=== PATIENT | male | born 1950 | race Caucasian/White ===

== ENCOUNTER → 2022-11-07 10:55 | Outpatient (REF) | payer MEDICARE, SELFPAY ==
--- NOTE | 2022-11-07 11:03 | CA_ITS ---
Transthoracic Echocardiogram Patient (Last, First, Middle): Bradly Rios, Gender: Male Date of : 1950 Age: 71 Procedure Date: 11/07/2022 Procedure Type: Transthoracic Echocardiogram Location: [place] Height: 180.34 cm Weight: 94.8 kg BSA: 2.15 m2 Heart Rate: 88 bpm BP: 118 / 78 mmHg Nature Photographer: SB Referring MD: Nimo Rendon NP Symptoms: MITRAL REGURGITATION Study Quality: Technically Difficult ECG Rhythm: Sinus Conclusions: - The left ventricular systolic function is normal. The calculated ejection fraction is 56% by biplane method. - There is mild calcification of the aortic valve. - There is mild posterior mitral leaflet prolapse. There is mild mitral valve regurgitation. - There is mild tricuspid valve regurgitation. Findings Left Ventricle Normal left ventricular cavity size. There is normal left ventricular wall thickness. The left ventricular systolic function is normal. The calculated ejection fraction is 56% by biplane method. There is no evidence of regional wall motion abnormalities. Diastolic function is indeterminate on the basis of available data. Strain imaging not reliable. Right Ventricle Normal right ventricular cavity size and systolic function. Atria Possible dilatation, but measurements could be inaccurate. The right atrium is normal in size. Aortic Valve There is a normal trileaflet aortic valve. There is mild calcification of the aortic valve. There is no aortic valve stenosis. There is no aortic valve regurgitation. Mitral Valve There is mild posterior mitral leaflet prolapse. There is mild mitral valve regurgitation. There is no mitral valve stenosis. Pulmonic Valve The pulmonic valve is likely normal. Tricuspid Valve Normal tricuspid valve structure. There is mild tricuspid valve regurgitation. Top normal RVSP. Great Vessels The asc aorta is normal in size. Venous The inferior vena cava is normal in size and collapses greater than 50% with inspiration. Pericardium/Pleural There is no evidence of pericardial effusion. Prior Study Comparison No prior study available for comparison. Measurements 2D Linear Measurements IVSd: 0.83 0.6-0.9/0.6-1.0 cm LVIDd: 5.12 3.9-5.3/4.2-5.9 cm LVIDd Index: 2.38 2.4-3.2/2.2-3.1 cm/m2 LVIDs: 3.56 2.0-3.6 cm LVPWd: 0.76 0.7-1.1 cm LA Diam: 4.70 2.7-3.8/3.0-4.0 cm LAIDs Index: 2.19 1.5-2.3 cm/m2 LV Mass: 174.47 67-162/88-224 g LV Mass Index: 81.15 43-95/49-115 g/m2 LVOT Diam: 2.50 3.0+(-)1.3 cm 2D Systolic Function EF 4C: 53.90 >55% EF 2C: 54.30 >55% EF BiP: 55.70 >55% Mitral Valve MV Pk E: 0.98 MV PK A: 0.55 MV Decel Time: 100.00 E/A: 1.80 E'Lateral: 4.57 E/E' Lat: 21.40 PHT: 29.00 MVA PHT: 7.59 Decel Kenton: 9.78 Aortic Valve AoV Pk Elder: 0.85 AoV Pk Grad: 3.00 CAREN: 4.19 LVOT LVOT Pk Elder: 0.87 LVOT Mn Elder: 0.57 LVOT VTI: 0.16 LVOT Pk Grad: 3.00 LVOT Mn Grad: 2.00 LVOT Diam: 2.50 LVOT Area: 4.91 Diastolic Function MV Pk E: 0.98 MV Pk A: 0.55 E/A: 1.80 E' Laterial: 4.57 E/E' Lat: 21.40 Right Ventricle TAPSE (mm): 18.30 TVS' Elder: 10.70 Tricuspid Valve TR Pk Elder: 2.92 TR Pk Grad: 34.00 RA Press: 3.00 RVSP: 38.00 Great Vessels Aorta Sinus of Valsalva: 3.40 2.0-3.5 cm Ao Asc: 3.70 2.1-3.4 cm Pulmonary Valve PV Pk Elder: 0.76 Peak PV Grad: 2.00 Updated in Other Vendor System with Status of Final Dorian Casper MD electronically signed on 11/07/2022 3:46:53 PM with status of Final
== END ==
LOC: HO.CARD 10:55
PROVIDERS: PCP Internal Medicine; Visit Provider Nurse Practitioner
DX: I34.0 Nonrheumatic mitral (valve) insufficiency (principal)
CPT/HCPCS: 93306